=== PATIENT | male | born 1980 | race Caucasian/White ===

== ENCOUNTER 2016-12-16 22:37 | Emergency (ER) | payer MEDICARE ==
[2016-12-17 00:32] LABS: AMPHETAMINES POSITIVE (NEGATIVE); BARBITURATES NEGATIVE (NEGATIVE); BENZODIAZEPINES NEGATIVE (NEGATIVE); COCAINE NEGATIVE (NEGATIVE); MARIJUANA (THC) NEGATIVE (NEGATIVE); METHADONE NEGATIVE (NEGATIVE); TRICYCLIC ANTIDEPRESSANT NEGATIVE (NEGATIVE)
== END 2016-12-17 00:41 | disposition home or self-care (01) ==
LOC: FER 22:37
PROVIDERS: Emergency Medicine Emergency Medical Services
DX: T14.8 Other injury of unspecified body region (principal); R05 Cough; F32.9 Major depressive disorder, single episode, unspecified; F17.210 Nicotine dependence, cigarettes, uncomplicated; Z79.899 Other long term (current) drug therapy; W46.0XXA Contact with hypodermic needle, initial encounter
CPT/HCPCS: 80305; 86706; 86803; 87389